=== PATIENT | male | born 1995 | race Caucasian/White ===

== ENCOUNTER 2022-11-17 06:04 | Emergency (ER) | payer OTHER ==
[~2022-11-17] VITALS: Ht 172.7 cm; Wt 65.8 kg
[2022-11-17 06:18] VITALS: BP 130/71
--- NOTE | 2022-11-17 07:21 | NUR ---
Patient discharged to home in stable condition. Written and verbal after care instructions given. Patient verbalizes understanding of instruction.
== END 2022-11-17 07:23 | disposition home or self-care (01) ==
LOC: ER 06:04
DX: S97.112A Crushing injury of left great toe, initial encounter (principal); F17.200 Nicotine dependence, unspecified, uncomplicated; W20.8XXA Other cause of strike by thrown, projected or falling object, initial encounter; Y93.89 Activity, other specified; Y92.89 Other specified places as the place of occurrence of the external cause; Y99.8 Other external cause status
CPT/HCPCS: 73660-TC

== ENCOUNTER 2022-11-22 11:23 | Emergency (ER) | payer SELFPAY ==
[~2022-11-22] VITALS: Ht 167.6 cm; Wt 59.0 kg
[2022-11-22 11:32] VITALS: BP 134/74
[2022-11-22] MEDS ORDERED: NAPR-1164 PO (12:03)
== END 2022-11-22 12:09 | disposition home or self-care (01) ==
LOC: ER 11:28
DX: M79.675 Pain in left toe(s) (principal)